=== PATIENT | female | born 1985 | race Hispanic/Latino ===

== ENCOUNTER 2018-04-02 22:47 | Emergency (ER) | payer SELFPAY ==
[2018-04-03 00:07] LABS: Basophils # (Auto) 0.1 K/mm3 (0.0-0.1); Basophils % (Auto) 0.5 % (0.0-1.8); Eosinophils # (Auto) 0.1 K/mm3 (0.0-0.4); Eosinophils % (Auto) 1.1 % (0.0-4.3); Hematocrit 36.5 % (30.3-42.9); Hemoglobin 11.5 gm/dl (10.1-14.3); Lymphocytes # (Auto) 2.5 K/mm3 (1.2-5.4); Lymphocytes % (Auto) 23.4 % (13.4-35.0); Mean Corpuscular HGB Conc 32 % (30-34); Mean Corpuscular Volume 80 fl (79-97); Monocytes # (Auto) 0.8 K/mm3 (0.0-0.8); Platelet Count 272 K/mm3 (140-440); Red Blood Count 4.58 M/mm3 (3.65-5.03); Red Cell Distribution Width 15.2 % (13.2-15.2)
[2018-04-03 00:19] LABS: Alanine Aminotransferase 13 units/L (7-56); Albumin 4.6 g/dL (3.9-5); BUN/Creatinine Ratio 18; Blood Urea Nitrogen 11 mg/dL (7-17); Calcium 9.2 mg/dL (8.4-10.2); Hemolysis Index 12
[2018-04-03 00:37] LABS: Mean Corpuscular Hemoglobin 25 pg (28-32)
[2018-04-03 02:08] LABS: Bilirubin,Urine NEG (Negative); Blood,Urine NEG (Negative); Color,Urine Yellow (Yellow); Protein,Urine <15 mg/dL mg/dL (Negative); Urobilinogen,Urine < 2.0 mg/dL (<2.0)
[2018-04-03 03:03] VITALS: BP 112/69
[2018-04-03] MEDS ORDERED: TORADOL IM ONE (03:03)
--- NOTE | 2018-04-03 03:20 | Emergency Department Report ---
HPI - General Chief Complaint: Abdominal Pain Time Seen by Provider: 04/03/18 02:45 - HPI HPI: 32-year-old female presents to the emergency department with a complaint of acute on chronic mid to low back pain. She says "I think it must be my kidneys." It is associated with some nausea and she has had 1 or 2 episodes of vomiting. However the back pain originally started about one year ago. Patient also complains of a yeast infection and some vaginal pain has been going on for the past week. She says that she has tried to treated with Monistat and Azo without any relief. She denies any dysuria, vaginal bleeding, fever. No recent travel or sick contacts at home. She denies any past medical history. She does not have a primary care physician. She denies any problems with bowel movements, numbness or paresthesias or any neurological deficits. Patient drove herself in to be seen today. ED Past Medical Hx - Past Medical History Previous Medical History?: No - Surgical History Past Surgical History?: Yes Additional Surgical History: csect X2 - Social History Smoking Status: Current Every Day Smoker Substance Use Type: Alcohol - Medications Home Medications: Home Medications Medication Instructions Recorded Confirmed Last Taken Type Fluconazole [Diflucan TAB] 150 mg PO QDAY #2 tablet 04/03/18 Unknown Rx HYDROcodone/APAP 5-325 [Dania 1 each PO Q6HR PRN #8 tablet 04/03/18 Unknown Rx 5/325] metroNIDAZOLE [Flagyl] 500 mg PO Q12HR #14 tab 04/03/18 Unknown Rx ED Review of Systems ROS: Stated complaint: ABD PAIN / VOMITING Other details as noted in HPI Comment: All other systems reviewed and negative Constitutional: denies: chills, fever Eyes: denies: eye pain, eye discharge, vision change ENT: denies: ear pain, throat pain Respiratory: denies: cough, shortness of breath, wheezing Cardiovascular: denies: chest pain, palpitations Gastrointestinal: nausea, vomiting Genitourinary: discharge. denies: hematuria Musculoskeletal: back pain. denies: arthralgia Skin: denies: rash, lesions Neurological: denies: headache, weakness, paresthesias Physical Exam - Physical Exam Vital Signs: Vital Signs 04/02/18 04/03/18 23:08 03:02 Temperature 98.5 F 97.8 F Pulse Rate 91 H 95 H Respiratory 18 16 Rate Blood Pressure 113/72 Blood Pressure 112/69 [Left] O2 Sat by Pulse 98 97 Oximetry Physical Exam: GENERAL: The patient is well-developed well-nourished. HENT: Normocephalic. Atraumatic. Patient has moist mucous membranes. EYES: Extraocular motions are intact. Pupils equal reactive to light bilaterally. NECK: Supple. Trachea is midline. CHEST/LUNGS: Clear to auscultation. There is no respiratory distress noted. HEART/CARDIOVASCULAR: Regular. There is no tachycardia. There is no murmur. ABDOMEN: Abdomen is soft, nontender. Patient has normal bowel sounds. There is no abdominal distention. SKIN: Skin is warm and dry. NEURO: The patient is awake, alert, and oriented. The patient is cooperative. The patient has no focal neurologic deficits. The patient has normal speech. MUSCULOSKELETAL: There is no tenderness or deformity. There is no limitation range of motion. There is no evidence of acute injury. : There are no vaginal or labial lesion seen. There is a moderate amount of yellowish motor is discharge in the vaginal vault. There is also some cheesy appearing white thick discharge concerning for yeast infection. BACK: No midline thoracic or lumbar tenderness to palpation but there is some bilateral paraspinal lower thoracic and upper lumbar tenderness to palpation. No step-off or deformity. ED Course Vital Signs 04/02/18 04/03/18 23:08 03:02 Temperature 98.5 F 97.8 F Pulse Rate 91 H 95 H Respiratory 18 16 Rate Blood Pressure 113/72 Blood Pressure 112/69 [Left] O2 Sat by Pulse 98 97 Oximetry ED Medical Decision Making - Lab Data Result diagrams: 04/02/18 23:45 04/02/18 23:45 - Radiology Data Radiology results: report reviewed CT of the abdomen and pelvis does not show any acute process. - Medical Decision Making Patient comes in with complaint of some vaginal discomfort, discharge, probable yeast infection and some back pain. Back pain is acute on chronic going on for at least half a year. Urinalysis does not show any urinary tract infection and the patient is not . The majority of the blood work is unremarkable. A pelvic exam was done that showed discharge that tested positive for bacterial vaginosis as well as some signs of a candidal yeast infection. Vital signs stable throughout her ED course including being afebrile. The patient was given primary care and [facility] referrals. She will go home on Diflucan and Flagyl and was given a small amount of pain medication for her back pain. She was encouraged to return to the emergency Department with any worsening of her symptoms or any acute distress. - Differential Diagnosis yEast infection, BV, UTI, , nephrolithiasis Critical Care Time: No Critical care attestation.: If time is entered above; I have spent that time in minutes in the direct care of this critically ill patient, excluding procedure time. ED Disposition Clinical Impression: Yeast infection, Bacterial vaginosis Back pain Qualifiers: Back pain location: back pain in unspecified location Chronicity: unspecified Back pain laterality: bilateral Qualified Code(s): M54.9 - Dorsalgia, unspecified Disposition: TO HOME OR SELFCARE Is pt being admited?: No Condition: Stable Instructions: Bacterial Vaginosis (ED), Vulvovaginal Candidiasis (ED), Abdominal Pain (ED) Additional Instructions: Please follow up with a primary care physician and [facility] service. Return to the emergency Department with any worsening of your symptoms or any acute distress. You have been prescribed a medication that is sedating and therefore should not be taken prior to driving, working, and responsible for children and in no way should be mixed with alcohol of any quantity. You have also been prescribed a medication to treat your bacterial vaginosis called Flagyl/metronidazole. This medication cannot be mixed with alcohol in any quantity or else he will have severe nausea and vomiting. Prescriptions: Fluconazole [Diflucan TAB] 150 mg PO QDAY #2 tablet HYDROcodone/APAP 5-325 [Dania 5/325] 1 each PO Q6HR PRN #8 tablet PRN Reason: Pain metroNIDAZOLE [Flagyl] 500 mg PO Q12HR #14 tab Referrals: PRIMARY CARE [Primary Care Provider] - 3-5 Days [facility] [Outside] - 3-5 Days [facility] [Provider Group] - 3-5 Days [facility] [Provider Group] - 3-5 Days [facility] [Provider Group] - 3-5 Days Time of Disposition: 05:59
--- NOTE | 2018-04-06 14:23 | Cat Scan Report ---
FINAL REPORT EXAM: CT ABDOMEN PELVIS WO CON HISTORY: flank and back pain TECHNIQUE: CT images obtained through the Abdomen and Pelvis without contrast. Transaxial,coronal and sagittal reformats are provided. PRIORS: None. FINDINGS: Imaged intrathoracic contents are unremarkable. Kidneys are normal in size, axis and position. No hydronephrosis or nephrolithiasis. The ureters are normal in course and caliber. No stones are seen within the urinary bladder. The liver, gallbladder, pancreas, spleen, and adrenal glands demonstrate an unremarkable noncontrast appearance. Hollow enteric organs are normal in course and caliber. No findings of acute appendicitis. No intra-abdominal free air/fluid or lymphadenopathy. Aorta is normal in course and caliber. Anteverted uterus. No significant free fluid in the pelvis. Pelvic phleboliths are noted. Superficial soft tissues are unremarkable. No acute or aggressive appearing skeletal findings. IMPRESSION: No CT evidence of obstructive urolithiasis or other acute abdominal or pelvic findings.
== END 2018-04-03 06:23 | disposition home or self-care (01) ==
LOC: ED 22:47
DX: N76.0 Acute vaginitis (principal); B37.3 Candidiasis of vulva and vagina; B96.89 Other specified bacterial agents as the cause of diseases classified elsewhere; F17.200 Nicotine dependence, unspecified, uncomplicated; Z79.899 Other long term (current) drug therapy; Z88.1 Allergy status to other antibiotic agents
CPT/HCPCS: 36415; 74176; 80053; 81001; 84703; 85025; 87210; 87591; 96372; 99284; J1885